=== PATIENT | male | born 1945 | race Caucasian/White ===

== ENCOUNTER → 2025-02-10 08:51 | Outpatient (REF) | payer MEDICARE, SELFPAY | LOC: RAD 08:51 | PROVIDERS: ATTENDING PHYSICIAN Registered Nurse; FAMILY PHYSICIAN Internal Medicine | DX: E11.51 Type 2 diabetes mellitus with diabetic peripheral angiopathy without gangrene (principal); I65.23 Occlusion and stenosis of bilateral carotid arteries; I77.1 Stricture of artery | CPT/HCPCS: 93880; 93922; 93923; 93930 ==